=== PATIENT | female | born 1935 | race Caucasian/White ===

== ENCOUNTER 2017-11-03 12:42 | Emergency (ER) | payer OTHER ==
[~2017-11-03] VITALS: Ht 157.5 cm; Wt 93.4 kg
[~2017-11-03 12:42] MED LIST: ASPIR 8181 MG PO; CIPRO 500MG (E500 MG PO; DICLOFENAC SODI50 M2 PO; DULOXETINE30 MG PO; GABAPENTIN600 MG PO; HYDROCODONE/ACE1 TA2 PO; HYDROCODONE/ACE1 TA8 PO; HYDRODIURIL 112.5 M1 PO; LOPRESSOR 25MG25 MG PO; LORAZEPAM0.5 MG PO; LOSARTAN POTAS100 MG PO; MELATONIN3 MG PO; METFORMIN HCL500 MG PO; METHIMAZOLE5 MG PO; RANITIDINE150 MG PO; SIMVASTATIN40 MG PO; VITAB121000 PO; VITAMIN D50000 IU PO; ZOFRAN 4MG ORALL4 MG PO
--- NOTE | 2017-11-03 13:51 | RADIOLOGY REPORT ---
EXAMINATION: XR KNEE, LEFT CLINICAL INFORMATION: Left knee pain and swelling after fall. Rule out fracture. COMPARISON: Left knee films dated 06/16/2013. TECHNIQUE: Four views of the left knee. FINDINGS: No acute fracture or dislocation. No significant knee joint effusion. Severe degenerative changes in the lateral femoral and patellofemoral compartments with joint space narrowing and spurring and cystic changes noted. Mild narrowing of the medial femoral compartment. Some spurring seen at the tibial spines. No joint calcifications. Linear sclerotic growth line in distal femoral shaft again seen. IMPRESSION: 1. No acute fracture or dislocation. 2. Severe degenerative changes in the lateral femoral and patellofemoral compartments. Findings are similar to the previous exam from 2013.
--- NOTE | 2017-11-03 14:03 | CT SCAN REPORT ---
EXAMINATION: CT HEAD WITHOUT CONTRAST CT CERVICAL SPINE WITHOUT CONTRAST CLINICAL INFORMATION: Status post unwitnessed fall. Assess for intracranial bleed. COMPARISON: CT scan of the head 08/13/2013. CT scan of the cervical spine 08/07/2010. TECHNIQUE: Multidetector CT imaging of the head and cervical spine was performed without the use of intravenous contrast. Coronal and sagittal reformatted images were generated at the technologist workstation. Imaging is suboptimal due to patient motion artifact. DLP: 1181.57 mGy-cm. FINDINGS: CT head: There is no evidence of acute intracranial hemorrhage or territorial infarction. No abnormal mass-effect or midline shift is seen. Swan to white matter differentiation is well preserved. No extra-axial fluid collections are identified. There is mild commensurate prominence of the ventricles and sulci consistent with mild diffuse volume loss. There are areas of low attenuation in the periventricular white matter consistent with hypervascular ischemic changes. There are small lacunar infarcts in the bilateral basal ganglia. There are no acute osseous findings. There are degenerative changes of the bilateral temporomandibular joints. There are atheromatous calcifications of the cavernous internal carotid arteries bilaterally. There are no large scalp contusions or hematomas. There have been bilateral lens extractions. The mastoid air cells and visualized paranasal sinuses are well-aerated. CT cervical spine: There is hyperkyphosis in the thoracic spine. There is a degenerative anterolisthesis of C4 on C5 secondary to facet arthropathic changes particularly on the left. Facet arthropathic changes are also demonstrated at multiple other levels bilaterally. There is narrowing of intervertebral disc height at C5-C6 with marginal sclerosis and osteophytes. Milder narrowing is noted at C4-C5 and C6-C7. There are uncovertebral osteophytes contributing to multilevel foraminal narrowing. Vertebral body heights are maintained and no fractures are demonstrated. There is anatomic alignment of the lateral masses of C1 and C2. The dens appears intact. The atlantooccipital articulations are maintained. There are atheromatous calcifications of the bilateral carotid bifurcations. There are emphysematous changes at the lung apices bilaterally. IMPRESSION: 1. There are no acute bleeds or territorial infarcts. There is diffuse volume loss and there are chronic microvascular ischemic changes and lacunar infarcts. 2. There are no acute osseous findings. There is a degenerative anterolisthesis of C4 on C5 secondary to facet arthropathy. There are facet arthropathic changes at other levels. There is multilevel narrowing of intervertebral disc height, most severe at C5-C6.
[2017-11-03 14:32] LABS: ABSOLUTE BASOPHIL COUNT 0 /CUMM (0.0-0.2); ABSOLUTE EOSINOPHIL COUNT 0.2 /CUMM (0.0-0.7); ABSOLUTE GRANULOCYTE CT 4.8 /CUMM (1.4-6.5); ABSOLUTE LYMPH COUNT 1.2 /CUMM (1.2-3.4); ABSOLUTE MONOCYTE COUNT 0.4 /CUMM (0.10-0.60); BASOPHIL % 0.4 % (0.0-2.0); EOSINOPHIL % 3.7 % (0-5); GRANULOCYTE % 72.6 % (42.2-75.2); HEMATOCRIT 33.8 % (37-47); MEAN CORPUSCULAR HGB 29.4 PG (27.0-31.0); MEAN CORPUSCULAR HGB CONC 33.1 G/DL (33.0-37.0); MEAN CORPUSCULAR VOLUME 88.7 FL (81.0-99.0); MEAN PLATELET VOLUME 8.9 FL (7.4-10.4); PLATELET COUNT 122 /CUMM (130-400); RBC DISTRIBUTION WIDTH 15.2 % (11.5-14.5); RED BLOOD CELL CT 3.81 /CUMM (4.20-5.40); WHITE BLOOD CELL COUNT 6.6 /CUMM (4.8-10.8)
--- NOTE | 2017-11-03 20:20 | ED GENERAL ADULT ---
History of Present Illness General Chief Complaint: Fall Stated Complaint: FALL LAST PM, L KNEE SWOLLEN AND PAINFUL Source: patient Exam Limitations: no limitations Vital Signs & Intake/Output Vital Signs & Intake/Output Vital Signs Date Time Temp Pulse Resp B/P B/P Pulse O2 O2 Flow FiO2 Mean Ox Delivery Rate 11/03 2116 98.5 83 20 151/88 93 Room Air 11/03 1255 98.0 88 24 156/77 88 Room Air Allergies Coded Allergies: Penicillins (RASH 06/06/15) Sulfa (Sulfonamide Antibiotics) (RASH 06/06/15) acetaminophen (GI DISTRESS 06/06/15) hydromorphone (From DILAUDID) (NAUSEA 06/06/15) morphine (NAUSEA 06/06/15) oxycodone (HEART RACES 06/06/15) Reconcile Medications Aspirin (Ecotrin) 81 MG TABLET.DR 2 TAB PO DAILY HEART HEALTH (Reported) Cyanocobalamin (Vitamin B-12) 1,000 MCG TAB 1 TAB PO DAILY V (Reported) Diclofenac Sodium (Diclofenac Sodium Dr) 50 MG ECT 1 TAB PO BID OSTEOARTHRITIS (Reported) DULOXETINE HCL (Duloxetine) 30 MG CAPSULE.DR 1 TAB PO DAILY DEPRESSION ( Reported) ERGOCALCIFEROL (VITAMIN D2) (Vitamin D2) 50,000 UNIT CAPSULE 1 TAB PO EVERY 2 WEEKS BONE STRENGTH (Reported) Gabapentin 600 MG TABLET 1 TAB PO TID PAIN (Reported) Hydrochlorothiazide (Hydrodiuril 12.5 MG Tab) 12.5 MG CAPSULE 1 CAP PO DAILY BP (Reported) HYDROCODONE/ACETAMINOPHEN (Hydrocodon-Acetaminoph 7.5-325) 1 TAB TAB 1-2 TAB PO Q4-6 PRN PAIN (Reported) Lorazepam 0.5 MG TABLET 1 TAB PO BID PRN ANXIETY (Reported) Losartan Potassium 100 MG TABLET 1 TAB PO DAILY BP (Reported) Melatonin 3 MG TAB 2 TAB PO AT BEDTIME SLEEP (Reported) Metformin Hydrochloride (Metformin HCl) 500 MG TAB 1 TAB PO BID DIABETES ( Reported) Methimazole 5 MG TABLET 1 TAB PO DAILY Hyperthyroidism (Reported) Metoprolol Tartrate (Lopressor) 25 MG TABLET 1 TAB PO BID PRN HI BLOOD PRESSURE (Reported) RANITIDINE HCL (Ranitidine HCl) 150 MG TABLET 1 TAB PO DAILY DYSPEPSIA ( Reported) Simvastatin 40 MG TABLET 1 TAB PO QPM CHOLESTEROL (Reported) Triage Note: TRIAGE: PT TO ER C/C L KNEE PAIN AND SWELLING S/P FALL LAST PM. STATES SHE WENT TO THE BATHROOM TO URINATE AND FELL IN THE BATHROOM AFTER VOIDING. DOES NOT RECALL WHAT MADE HER FALL. STATES "OBVIOUSLY I LANDED ON MY KNEES". DENIES HEAD INJURY THOUGH IS UNSURE. SON ASSISTED HER UP. PT WITH HX OF CHRONIC BACK PAIN AND IS IN PAIN MANAGEMENT,TAKING TYLENOL #3 WITH "A LITTLE BIT OF RELIEF". PMHX COPD, STATES NORMAL O2 SATS 88% AT TRIAGE, STATES BREATHING FEELS A BIT LABORED, DID NOT USE INHALERS TODAY. NORMAL O2 SATS 88-90%. -WHEEZING NOTED PER TRAY TAVERA. TRAY TAVERA AT TRIAGE FOR EVAL. Past History Travel History Traveled to [place] past 21 day No Medical History Neurological: NEUROPATHY EENT: NONE Cardiovascular: hypertension, hyperlipidemia Respiratory: COPD, NORMAL O2 SAT 88-90% R/A Gastrointestinal: NONE Hepatic: NONE Renal: nephrolithiasis Musculoskeletal: chronic back pain, osteoarthritis Psychiatric: NONE Endocrine: diabetes Blood Disorders: PE Cancer(s): NONE ELECTRICAL MECHANIC/Reproductive: NONE History of MRSA: No History of VRE: No History of CDIFF: No Surgical History Surgical History: CABG Psychosocial History Who do you live with Son Services at Home Home Health Aide, Occupational Therapy, Physical Therapy What is your primary language [place]an Tobacco Use: Quit >30 days ago ETOH Use: denies use Illicit Drug Use: denies illicit drug use Family History Family History, If Any: SISTER FH: cancer (unable to specify type, ovarian?). MOTHER FATHER FHx: heart disease Progress Plan of Care: Orders Procedure Date/time Status Add-on Test (ER Only) 11/04 2015 Active CULTURE,URINE 11/03 1953 Active URINALYSIS 11/03 1340 Complete TROPONIN LEVEL 11/03 1302 Complete COMPREHENSIVE METABOLIC PANEL 11/03 1302 Complete CBC WITHOUT DIFFERENTIAL 11/03 1302 Complete EKG 11/03 1302 Active Current Medications Sig/Jairo Start time Last Medication Dose Stop Time Status Admin Acetaminophen 650 MG ONCE ONE 11/03 2014 CAN (Tylenol) 11/04 2015 Laboratory Tests 11/03/171953: Urine Color YEL, Urine Clarity CLEAR, Urine pH 7.0, Ur Specific Vance 1.010, Urine Protein NEG, Urine Ketones NEG, Urine Nitrite NEG, Urine Bilirubin NEG, Urine Urobilinogen 0.2, Ur Leukocyte Esterase TRACE H, Ur Microscopic SEDIMENT EXAMINED, Urine RBC FEW H, Urine WBC 15-25 H, Ur Epithelial Cells MOD H, Urine Hemoglobin NEG, Urine Glucose NEG 11/03/17 1413: Anion Gap 8, Estimated GFR 27 L, BUN/Creatinine Ratio 15.6, Glucose 147 H, Calcium 8.7, Total Bilirubin 0.5, AST 11 L, ALT 17, Alkaline Phosphatase 48, Troponin I 0.01, Total Protein 6.5, Albumin 3.9, Globulin 2.6, Albumin/Globulin Ratio 1.5, CBC w Diff NO MAN DIFF REQ, RBC 3.81 L, MCV 88.7, MCH 29.4, MCHC 33.1, RDW 15.2 H, MPV 8.9, Gran % 72.6, Lymphocytes % 17.9 L, Monocytes % 5.4, Eosinophils % 3.7, Basophils % 0.4, Absolute Granulocytes 4.8, Absolute Lymphocytes 1.2, Absolute Monocytes 0.4, Absolute Eosinophils 0.2, Absolute Basophils 0 Microbiology 11/03 1953 URINE ROUT: Urine Culture - RECD Initial pulse ox at Initial ED EKG: NSR, no ST T wave changes Departure Departure Disposition: HOME OR SELF CARE Condition: Stable Clinical Impression Primary Impression: Knee contusion Secondary Impressions: Fall Referrals: Munoz Geovani MONZON (PCP/Family) Additional Instructions: Use Tylenol as needed for pain. Follow-up with your primary care provider tomorrow as scheduled. Return to the emergency department for any new or worsening symptoms. Departure Forms: Customer Survey General Discharge Information
[2017-11-03 21:16] VITALS: BP 151/88
--- NOTE | 2017-11-03 21:34 | RADIOLOGY REPORT ---
EXAMINATION: XR CHEST CLINICAL INFORMATION: Cough. COMPARISON: Chest x-ray 05/24/2016 TECHNIQUE: 2 views of the chest were obtained. FINDINGS: Status post median sternotomy. The heart size is enlarged. There are vascular wall calcifications of aorta. No pulmonary vascular congestion. The lungs are clear. There is no pleural effusion or pneumothorax. There is a dextroscoliosis of the lower thoracic spine with multilevel degenerative spondylosis of the spine. There is [id number] contact and subchondral cystic and sclerotic changes of the left glenohumeral joint with marginal bone spurs of the glenoid and humeral head. There are multiple surgical orthopedic anchors in the right humeral head. IVC filter present in the abdomen. IMPRESSION: No acute abnormality.
== END 2017-11-03 22:00 ==
LOC: ERH 12:42
PROVIDERS: Physician Assistant
DX: M25.562 Pain in left knee (principal); J44.9 Chronic obstructive pulmonary disease, unspecified; M54.9 Dorsalgia, unspecified
CPT/HCPCS: 71046; 73562-LT; 81001; 87086; 93005; 93010